=== PATIENT | male | born 1960 | race Caucasian/White ===

== ENCOUNTER 2017-07-31 17:00 | Inpatient (IN) | payer MEDICARE, OTHER ==
[2017-07-31 17:45] VITALS: BP 120/75
[2017-07-31] MEDS ORDERED: Magnesium Hydroxide (MOM) 30 mL UDC PO PRN (19:55)
[2017-07-31] MEDS ORDERED: Maalox 30 mL Cup PO PRN (19:55)
[2017-08-01] MEDS: Multivitamin Tab PO SCH (09:18)
--- NOTE | 2017-08-01 21:39 | Psychiatric Evaluation ---
DATE OF SERVICE: JUSTIFICATION FOR HOSPITALIZATION: Brought in on a 5150 hold due to stabbing himself with a knife. CHIEF COMPLAINT: "I was very upset, I was drunk." HISTORY OF PRESENT ILLNESS: A 57-year-old male denies any current history of mental illness; however, he was very upset, upset that a friend of his no longer was talking to him, began to cut his wrists with a fork, stabbing himself in the wrists with a fork. The patient does not believe he is depressed, but apparently has been on antidepressants in the past, was also drinking alcohol alluding to 2 cans of beer per day, but that day he was drinking 6 beers because he was so upset about his loss of friendship. The patient notes his mood has been worsening for the past 2 weeks, attesting to poor sleep, poor appetite, psychological distress, turmoil, very focused and ruminative about his loss of a friendship over the past 2 weeks. The patient noted cocaine use back in the . He is drinking about 1-2 beers per day. No other drugs of abuse. MEDICATIONS: Noted. MEDICAL HISTORY: Please see full H and P. MENTAL STATUS EXAMINATION: Stated age. Fair eye contact. Speech within normal limits. Mood depressed. Affect withdrawn. Thought processes were linear. The patient is status post self-harming efforts, stabbing himself with a knife or a fork. No HI. No current psychotic symptoms. Insight and judgment questionable. Impulse control is poor. PROVISIONAL DIAGNOSES: Major depression, recurrent, severe; also anxiety, unspecified; rule out generalized anxiety disorder. Under medical, please see full H and P. ESTIMATED LENGTH OF STAY: 7-10 days. FUNCTIONAL IMPAIRMENTS: None noted. ASSESSMENT: The patient requiring hospitalization, stabbing himself with a knife or a fork in the wrists. PLAN: We will continue to monitor. Monitor for any signs and symptoms of alcohol withdrawal. TREATMENT PLAN: Includes group as well as milieu therapy. CONDITIONS FOR DISCHARGE: Improved mood, improved affect, cessation of any SI or HI, better mood. [facility]# [id number]
[2017-08-02] MEDS: Multivitamin Tab PO SCH (09:12)
--- NOTE | 2017-08-02 23:47 | History & Physical ---
ADMIT DATE: 08/02/2017 REASON FOR ADMISSION: Mental disorders. HISTORY OF PRESENT ILLNESS: A 57-year-old male who was admitted to [facility] Unit for underlying psychiatric illnesses by Dr. Fierro. Dr. Fierro requested medical H and P on this patient. While evaluating the patient, the patient has self-inflicted bilateral forearm wounds. The patient denies any pain. No active bleeding, no bilateral hand forearm numbness. No fever, no chills. He has a dressing on for this wound. PAST MEDICAL HISTORY: No significant past medical history reported. PAST SURGICAL HISTORY: No significant past surgical history reported. SOCIAL HISTORY: Lives at home. Denies any alcohol, tobacco, or street drug use. CURRENT MEDICATIONS: The patient is on Lexapro, folic acid, Ativan, Maalox, Tylenol, milk of magnesia, multivitamins, vitamin B1, and Ambien. REVIEW OF SYSTEMS: As per HPI, 12-point system review appears negative. PHYSICAL EXAMINATION: VITAL SIGNS: Temperature 96.8, pulse 63, respiration is 20, blood pressure 123/76, oxygen saturation is 98% on room air. Pain 0/10. GENERAL APPEARANCE: The patient does not seem in acute distress. HEENT: Unremarkable. HEART: S1, S2 normal. LUNGS: Clear to auscultation bilaterally. ABDOMEN: Soft, nontender. No guarding, no rigidity. NEUROLOGIC: The patient is alert, awake, follows commands, moves all extremities. SKIN: Bilateral forearm wound noted. No active bleeding noted. Wound appears clean. AVAILABLE LABORATORY DATA: No lab tests available for my review. ASSESSMENT: 1. Bilateral forearm superficial wound. 2. Insomnia. 3. Psychiatric disorder. PLAN: The patient admitted to [facility]. The patient will be given daily wound care. The patient given Ambien as needed for sleep. The patient will be continued on multivitamins. Stool softener as needed for constipation. Psych evaluation and management per psychiatrist. The patient's condition and plan of care discussed with nursing staff. Thank you Dr. iFerro for allowing us to participate in care of this patient. JOB# [id number]
--- NOTE | 2017-08-03 02:27 | Progress Notes ---
DATE: 08/02/2017 SUBJECTIVE: The patient in the hospital, brought on hold, was trying to stop his wrist with a fork. He actually did stop his wrist with a fork. The patient remains depressed, withdrawn, still somewhat isolative. He notes his family did come to visit yesterday, so he was pleased about that. Still appearing depressed, isolative, highly impulsive, unpredictable. Medications were noted. He notes he has been on antidepressants in the past. Currently on Lexapro. The patient is sleeping well, eating well. ASSESSMENT: The patient remains symptomatic, tried to kill himself, stabbed self in the wrist with a fork. We will continue to monitor, ongoing safety concerns. We will initiate a 14-day hold. JOB# [id number]
[2017-08-03] MEDS: Triple Antibiotic 0.94 gm Pkt TP SCH (08:27)
[2017-08-03] MEDS: Multivitamin Tab PO SCH (08:27)
--- NOTE | 2017-08-03 22:33 | Progress Notes ---
DATE: 08/03/2017 Case was discussed with staff of the patient, reviewed records. Covering for Dr. Fierro. This is a 57-year-old male who was admitted on 07/31/2017. The patient was upset because a friend of his no longer was talking to him, began to cut his wrists with a fork, stabbing himself and there are bryson from both wrists. His sister was visiting him. The patient has been depressed. The patient has been on antidepressant in the past, also was drinking alcohol alluding to 2 cans of beer every day. He was upset and he drank 6 beers because of loss of his friendship, has been worsening mood for the past 2 weeks, ruminating about a lot of his friends. The patient was seen and evaluated by Dr. Alvarado and the patient has been started on Lexapro 10 mg a day, multivitamin and thiamin and Ativan to be given as needed for alcohol withdrawal. He continues to be unpredictable and impulsive. He continues to be depressed. No side effects with the medication, no sedation, no nausea, no extrapyramidal symptoms. I will continue outpatient group therapy, milieu therapy and adjust the medication as needed. JOB# [id number]
[2017-08-04] MEDS: Triple Antibiotic 0.94 gm Pkt TP SCH (08:16)
[2017-08-04] MEDS: Multivitamin Tab PO SCH (08:18)
--- NOTE | 2017-08-04 20:29 | Progress Notes ---
DATE: 08/04/2017 SUBJECTIVE: Case was discussed with staff of patient. The staff reported that the patient has been more lucid. He continues to be depressed. Continues to be unpredictable, impulsive, and stabbing himself on both arms. He continues to have poor insight. He is sleeping better, eating better. No side effects with the medication, no sedation, no nausea and we will continue outpatient group therapy, milieu therapy, and adjust medications as needed. JOB# [id number]
[2017-08-05] MEDS: Triple Antibiotic 0.94 gm Pkt TP SCH (08:48)
[2017-08-05] MEDS: Multivitamin Tab PO SCH (08:49)
[2017-08-06] MEDS: Multivitamin Tab PO SCH (09:25)
[2017-08-06] MEDS: Triple Antibiotic 0.94 gm Pkt TP SCH (09:25)
--- NOTE | 2017-08-06 21:26 | Progress Notes ---
DATE: 08/05/2017 SUBJECTIVE: Chart reviewed and the patient interviewed. Also, discussed the patient's condition with the staff and reviewed records and labs. The patient is complaining of insomnia. The patient also is feeling hopeless and is still in a depressed mood. The patient also said that his depression has been worse during manager integrated. Also, continues to have intermittent thoughts of suicide, with a plan to cut his wrists. Otherwise, the patient said that he is "not feeling got hurt". The patient said that he has a close couple that he has been friend with them for a while, but all of a sudden they decided not to talk to him because the thought that the patient wants to have a relationship with his . The patient denies any of that and he said that they are close friends to him. At the same time, the patient is compliant with taking Lexapro at a dose of 10 mg every day with no side effects. TREATMENT PLAN: We will continue same dose, and continue to monitor his behavior and his condition closely. JOB# [id number]
[2017-08-07] MEDS: Multivitamin Tab PO SCH (09:25)
[2017-08-07] MEDS: Triple Antibiotic 0.94 gm Pkt TP SCH (09:25)
--- NOTE | 2017-08-07 18:43 | Progress Notes ---
DATE: 08/06/2017 SUBJECTIVE: Chart reviewed and the patient interviewed. Also discussed the patient's condition with the staff and reviewed records and labs. The patient is still angry and patient is "upset with my mother." The patient also is still forgetful and is still suspicious and paranoid and he thinks that someone came into his room and hit him. The patient also is complaining of difficulty sleep at night and he said that Ambien helps him for a sleep at night. The patient on the other hand is compliant with taking Lexapro with no side effect. ASSESSMENT: The patient is still confused and is still irritable. TREATMENT PLAN: Continue to monitor his behavior and his condition closely. Also, working on his ineffective coping and his agitation and irritability. JOB# [id number]
--- NOTE | 2017-08-07 20:37 | Progress Notes ---
DATE: 08/07/2017 SUBJECTIVE: Chart reviewed and the patient interviewed. Also discussed the patient's condition with the staff and reviewed records and labs. The patient is still in a depressed mood. The patient also is still anxious and is guarded. The patient also is still minimizing his level of depression and his thoughts of suicide was planned to cut himself. He also is withdrawn and interacting minimally with others. Also, still has episodes of paranoia and delusions and still at times thinks that people entering his room and hitting him. Otherwise, the patient is compliant with taking his medications and seems to be less paranoid and less fearful. ASSESSMENT: The patient is still depressed and is still a high risk dangerous to self. TREATMENT PLAN: We will continue monitoring his behavior and his condition closely. Also, we will continue working on his ineffective coping. Also, the patient continued to take Lexapro in a dose of 10 mg every day and will continue to follow up closely. JOB# [id number]
[2017-08-08] MEDS: Triple Antibiotic 0.94 gm Pkt TP SCH (09:41)
[2017-08-08] MEDS: Multivitamin Tab PO SCH (09:41)
--- NOTE | 2017-08-09 02:16 | Progress Notes ---
DATE: 08/08/2017 Chart reviewed and the patient interviewed. Also, discussed the patient's condition with the staff and reviewed records and labs. The patient also is guarded and has been paranoid. The patient also is forgetful. The patient also is still abusing others who try to come into his room, and having very difficulty with privacy. Otherwise, the patient is cooperative and is compliant with taking his medications with no side effects of medications. ASSESSMENT: The patient is still agitated and is still ____. TREATMENT PLAN: We will monitor his behavior and his condition closely. Also, continue to work on his poor impulse control and agitation and ____. JOB# [id number]
[2017-08-09] MEDS: Triple Antibiotic 0.94 gm Pkt TP SCH (08:59)
[2017-08-09] MEDS: Multivitamin Tab PO SCH (08:59)
--- NOTE | 2017-08-09 23:57 | Progress Notes ---
DATE: 08/09/2017 SUBJECTIVE: Chart reviewed and the patient interviewed. Also discussed the patient's condition with the staff and reviewed records and labs. The patient is still in a depressed mood. The patient also is still isolative and he is still interacting minimally with others. The patient also is cooperative with his treatment and compliant with taking his medications, but he wants to be left alone. He denies any intention to harm himself or others. ASSESSMENT: The patient is still depressed. TREATMENT PLAN: Continue to monitor his behavior and his condition closely. Also, continue adjusting psychotropic medications and followup. [facility]# [id number]
[2017-08-10] MEDS: Triple Antibiotic 0.94 gm Pkt TP SCH (09:27)
[2017-08-10] MEDS: Multivitamin Tab PO SCH (09:28)
--- NOTE | 2017-08-11 07:46 | Progress Notes ---
DATE: 08/10/2017 PSYCHIATRIC PROGRESS NOTE SUBJECTIVE: Chart reviewed and the patient interviewed. Also discussed the patient's condition with the staff and reviewed records and labs. The patient remains in a depressed mood. The patient also is still guarded and is still withdrawn. The patient also is still complaining of trouble sleeping at night sometimes although he said that he is in general sleeping better than before. He also denies any intention to kill himself and denies any craving to drink. ASSESSMENT: The patient is still depressed. TREATMENT PLAN: Continue to monitor his behavior and his condition closely. Also, continue Lexapro same dose. Also discussed with the patient discharge plans and if he will return to home or will need placement. [facility]# [id number]
[2017-08-11] MEDS: Multivitamin Tab PO SCH (08:44)
--- NOTE | 2017-08-11 12:19 | General Progress Note ---
Subjective - Review of Systems Service Date: 08/11/17 Subjective: Patient seen and examined feels better denied any complaints Objective - Physical Exam Vitals and I&O: Vital Signs Temp 97.8 F 08/11/17 06:51 Pulse 77 08/11/17 06:51 Resp 20 08/11/17 06:51 BP 134/74 08/11/17 06:51 Pulse Ox 97 08/11/17 06:51 Intake & Output 08/10/17 08/11/17 08/11/17 18:59 06:59 18:59 Intake Total 1200 360 Balance 1200 360 Intake: Oral 1200 360 Other: # Voids 4 2 # Bowel Movements 1 1 Active Medications: Current Medications Acetaminophen (Tylenol) 650 mg PO Q4HR PRN PRN Reason: Mild Pain / Temp above 100 Stop: 09/29/17 19:54 Al Hydrox/Mg Hydrox/Simethicone (Maalox) 30 ml PO Q4HR PRN PRN Reason: GI DISTRESS Stop: 09/29/17 19:54 Escitalopram Oxalate (Lexapro) 10 mg PO DAILY QUINN; Protocol Stop: 09/30/17 08:59 Last Admin: 08/11/17 08:44 Dose: 10 mg Folic Acid (Folate) 1 mg PO DAILY QUINN Stop: 09/30/17 08:59 Last Admin: 08/11/17 08:44 Dose: 1 mg Lorazepam (Ativan) 0.5 mg PO TID PRN; Protocol PRN Reason: Anxiety Stop: 10/07/17 20:02 Magnesium Hydroxide (Milk Of Magnesia) 30 ml PO HS PRN PRN Reason: Constipation Multivitamins/Vitamin C (Theragran) 1 tab PO DAILY QUINN Stop: 09/30/17 08:59 Last Admin: 08/11/17 08:44 Dose: 1 tab Thiamine HCl (Vitamin B1) 100 mg PO DAILY QUINN Stop: 09/30/17 08:59 Last Admin: 08/11/17 08:44 Dose: 100 mg Zolpidem Tartrate (Ambien) 5 mg PO HS PRN PRN Reason: Insomnia Stop: 10/07/17 20:07 Last Admin: 08/09/17 21:15 Dose: 5 mg General: Alert Cardiovascular: Regular rate Lungs: Clear to auscultation Assessment/Plan - Assessment Assessment: Bilateral arm superficial wound better Insomnia stable Psych disorder stable - Plan Plan: Continue current treatment Psych follow up Nutritional Asmnt/Malnutr-PDOC - Dietary Evaluation Malnutrition Findings (Please click <Entered> for more info): Nutritional Asmnt/Malnutrition Start: 08/06/17 15: 18 Text: Status: Complete Freq: Protocol: Document 08/06/17 15:18 LCHENG (Rec: 08/06/17 15:26 [email or web address] [id number]) Nutritional Asmnt/Malnutrition Patient General Information Nutritional Screening Low Risk Diagnosis mayor depression Pertinent Medical Hx/Surgical Hx no significant past medical hx reported Subjective Information Per EMR, PO intake 100% of meals. Current Diet Order/ Nutrition Support regular Pertinent Medications folate, theragran, B1 Pertinent Labs no labs Nutritional Hx/Data Height 1.78 m Height (Calculated Centimeters) 177.8 Current Weight (lbs) 74.843 kg Weight (Calculated Kilograms) 74.8 Weight (Calculated Grams) 47010.7 [place] Body Weight 166 Body Mass Index (BMI) 23.6 Weight Status Approriate GI Symptoms GI Symptoms None Last BM 08/05 Difficult in: None Skin Integrity/Comment: puncture wound Current %PO Good (75-100%) Estimated Nutritional Goals BEE in Kcals: Using Current wt Calories/Kcals/Kg 25-30 Kcals Calculated 6587-7835 Protein: Using Current wt Protein g/k.8-1 Protein Calculated 60-75 Fluid: ml 1875-2250ml (1ml/kcal) Nutritional Problem No current Nutrition Prob Problem N/A Malnutrition Alert Is there a minimum of two criteria No selected? Query Text:Check all the applicable criteria. A minimum of two criteria are recommended for diagnosis of either severe or non-severe malnutrition. Malnutrition Related to Morbid Obesity Malnutrition related to morbid obesity No Intervention/Recommendation Comments 1. Continue with regular diet as ordered. 2. Monitor PO intake, wt, labs and skin integrity 3. F/U as low risk in 7 days, 08/13 Expected Outcomes/Goals Expected Outcomes/Goals 1. PO intake to meet at least 75% of nutritional needs. 2. Wt stability, skin to remain intact, labs to approach WNL.
--- NOTE | 2017-08-11 18:02 | Progress Notes ---
DATE: SUBJECTIVE: Chart reviewed and the patient interviewed. Also discussed the patient's condition with the staff and reviewed records and labs. The patient is still in a depressed mood, but his affect is brighter. The patient is interacting slightly more. The patient also is compliant with taking his medications with no side effects of medications. The patient also is restless at times and anxious, but at the same time, he is showing no behavioral issues. ASSESSMENT: The patient is showing improvement and seems to be less depressed. TREATMENT PLAN: We will continue monitoring his behavior. Also, working on discharge plans and aftercare plans with nurse case manager. JOB# [id number]
[2017-08-12] MEDS: Multivitamin Tab PO SCH (09:55)
--- NOTE | 2017-08-12 14:59 | Discharge Summary ---
DATE OF DISCHARGE: 08/12/2017 AGE: 57. SEX: Male. PHYSICIAN: Ad Fierro M.D., M.P.H. FINAL DIAGNOSIS/PRIMARY DIAGNOSIS: Major depression, severe, recurrent, without psychotic features. REASON FOR HOSPITALIZATION: The patient was admitted to the hospital because of increased depression and suicidal ideations. HOSPITAL COURSE: The patient continued to be severely depressed. The patient was withdrawn. The patient also denies any craving to drink or choose any drugs. The patient was started on Lexapro and the dose adjusted to 10 mg every day. The patient's affect was brighter. The patient was less depressed. The patient was not suicidal or homicidal, and he was discharged from the hospital. Physical examination of the patient was basically within normal. Blood workup was also basically within normal. AFTER DISCHARGE PLANS: The patient discharged from the hospital with plans to continue his treatment as an outpatient. The patient also given appointment to see me in my office in [place]. Also, he is a candidate for partial program and we will do so upon further evaluation. JOB# [id number]
== END 2017-08-12 13:45 | disposition home or self-care (01) | DRG 885 ==
LOC: GERO 17:00
PROVIDERS: ADMIT Psychiatry & Neurology Psychiatry; ATTEND Psychiatry & Neurology Psychiatry
DX: F33.9 Major depressive disorder, recurrent, unspecified (principal); F41.9 Anxiety disorder, unspecified; G47.00 Insomnia, unspecified; R45.87 Impulsiveness; T14.91XA Suicide attempt, initial encounter; S61.512A Laceration without foreign body of left wrist, initial encounter; S50.912A Unspecified superficial injury of left forearm, initial encounter; F29 Unspecified psychosis not due to a substance or known physiological condition; S50.911A Unspecified superficial injury of right forearm, initial encounter; F10.20 Alcohol dependence, uncomplicated; S61.511A Laceration without foreign body of right wrist, initial encounter; X78.8XXA Intentional self-harm by other sharp object, initial encounter; Y93.89 Activity, other specified; Y92.89 Other specified places as the place of occurrence of the external cause; Y99.8 Other external cause status
CPT/HCPCS: 90899; G0410

== ENCOUNTER 2017-08-19 17:30 | Inpatient (IN) | payer MEDICARE, OTHER ==
[2017-08-19 18:57] VITALS: BP 151/76
[2017-08-19] MEDS ORDERED: Magnesium Hydroxide (MOM) 30 mL UDC PO PRN (20:42)
[2017-08-19] MEDS ORDERED: Maalox 30 mL Cup PO PRN (20:42)
[2017-08-20 09:46] LABS: % BASOPHILS 0.3 % (0.0-2.0); % EOSINOPHILS 1.9 % (0.0-5.0); % LYMPHOCYTES 19.7 % (20.0-50.0); % MONOCYTES 6.1 % (2.0-10.0); EOSINOPHILE ABSOLUTE 0.1 Th/cmm (0.1-0.4); HEMATOCRIT 42.9 % (41.0-60); HEMOGLOBIN 14.3 gm/dL (12-16); LYMPHOCYTE ABSOLUTE 1.3 Th/cmm (1.5-3.0); MEAN CELL VOLUME 94.9 fl (80-99); MEAN CORPUSCULAR HEMOGLOBIN 31.5 pg (26.0-30.0); MEAN CORPUSCULAR HGB CONC 33.2 pg (28.0-36.0); MEAN PLATELET VOLUME 8.3 fl; MONOCYTE ABSOLUTE 0.4 Th/cmm (0.3-1.0); NEUTROPHILE ABSOLUTE 4.9 Th/cmm (1.8-8.0); PLATELET COUNT 223 Th/cmm (150-400); RED BLOOD COUNT 4.52 Mil/cmm (4.30-5.70); RED CELL DISTRIBUTION WIDTH 11.9 % (11.5-20.0); WHITE BLOOD COUNT 6.7 Th/cmm (4.8-10.8)
[2017-08-20 09:57] LABS: ANION GAP 9.9 (7.0-16.0); BUN - UREA NITROGEN 8 mg/dL (7-25); CALCIUM SERUM 9.5 mg/dL (8.6-10.3); CARBON DIOXIDE 27.4 mEq/L (21.0-31.0); CHLORIDE 104 mEq/L (98-107); CHOLESTEROL 124 mg/dL (<200); CREATININE - SERUM 0.6 mg/dL (0.7-1.3); GFR AFRICAN-AMERICAN > 60.0 ml/min (>90); GFR NON AFRICAN-AMERICAN > 60.0 ml/min; GLUCOSE 139 mg/dL (70-105); HDL -HIGH DENSITY LIPOPROTEIN 46 mg/dL (23-92); POTASSIUM SERUM 3.3 mEq/L (3.5-5.1); SODIUM SERUM 138 mEq/L (136-145); TRIGLYCERIDES 46 mg/dL (<150)
[2017-08-20] MEDS: Multivitamin Tab PO SCH (10:17)
[2017-08-20 21:53] LABS: A1C % 4.7 % (4.0-6.0)
--- NOTE | 2017-08-21 02:11 | History & Physical ---
ADMIT DATE: 08/19/2017 REASON FOR ADMISSION: Psychiatric disorder. HISTORY OF PRESENT ILLNESS: A 57-year-old male admitted to [facility] Unit for underlying psychiatric illnesses by Dr. Fierro who requested medical H and P on this patient. Patient has bilateral forearm superficial wounds. The patient denies any pain. No active bleeding. SOCIAL HISTORY: No alcohol or tobacco use. CURRENT MEDICATIONS: Per medication reconciliation. ALLERGIES: No known allergies. REVIEW OF SYSTEMS: The patient denies any fever. No chills, no nausea, no vomiting, no abdominal pain, no bloody stool. PHYSICAL EXAMINATION: VITAL SIGNS: Temperature 97, pulse 80, respirations 18, BP 130/80 HEART: S1 and S2 normal. ASSESSMENT: 1. Bilateral forearm superficial wound. 2. Mental disorder. PLAN: The patient will be begin daily wound care dressing. Fall precautions. Psych evaluation per psychiatrist. Monitor vitals. The patient medically stable . Thank you Dr. Fierro. JOB# [id number] [facility]
--- NOTE | 2017-08-21 02:20 | Psychosocial Evaluation ---
DATE OF SERVICE: 08/20/2017 AGE: 57. SEX: Male. PHYSICIAN: Dr. Fierro. CHIEF COMPLAINT: Depression and suicidal ideations. HISTORY OF PRESENT ILLNESS: The patient is a 57-year-old male with history of severe depression and self-mutilation. The patient was transferred from [facility] after he tried to stab himself with a fork in a suicidal attempt. The patient said that he has been feeling depressed and has been feeling upset. He has been feeling hopeless and helpless and has been having lack of energy and lack of motivations. The patient also had been withdrawn and interacting minimally with others. The patient also admitted that he has been drinking. PAST PSYCHIATRIC HISTORY: The patient has history of multiple psychiatric hospitalizations for treatment of depression and drinking. PAST MEDICAL HISTORY: No major medical problems. SOCIAL HISTORY: The patient is single, never , has no children. He is unemployed and on disability. Denies legal issues and denies abuse issues. ALLERGIES: No known allergies. MENTAL STATUS EXAMINATION: The patient appears his stated age. Sad affect. Depressed mood. Thought processes is mainly goal directed. The patient denies hallucinations or delusions but admits to suicidal ideations, and denies homicidal ideations. The patient is alert and oriented to time, place, person, and situation. Intact immediate, recent and remote memories. Poor insight and poor judgment. ASSESSMENT: PRIMARY DIAGNOSIS: Major depression, severe, recurrent, without psychotic features. SECONDARY DIAGNOSIS: Alcohol use disorder. TREATMENT PLAN: Continue monitoring his behavior and his condition closely. We will restart the patient on Lexapro and we will adjust the dose. We will work on his also alcoholism and his drinking problems. ESTIMATED LENGTH OF STAY: 5-7 days. THE PATIENT'S STRENGTHS AND WEAKNESSES: The patient seems to be in relatively fair health. Weaknesses: His ineffective coping and his heavy drinking. AFTER DISCHARGE PLAN: Outpatient treatment and followup. We will continue as an outpatient and the patient will return to his placement. JOB# [id number]
[2017-08-21] MEDS: Multivitamin Tab PO SCH (08:30)
[2017-08-22] MEDS: Multivitamin Tab PO SCH (08:57)
--- NOTE | 2017-08-22 19:09 | Progress Notes ---
DATE: 08/22/2017 Case was discussed with staff of the patient and reviewed records. Covering for Dr. Fierro. This 57-year-old male, who is admitted on 08/19/2017 with history of severe depression, self-mutilation, transferred to [facility] after he tried to stab himself with a fork in a suicide attempt. The patient said that he has been feeling depressed and has been feeling upset, feeling hopeless and helpless and has been having lack of energy and lack of motivation and so far has been withdrawn, interacting minimally with others. He reports that he has been drinking, with a history of multiple psychotic hospitalizations for treatment of depression and drinking. He is on disability, single, never , unemployed, no children. The patient was seen by Dr. Fierro, who has been seeing for the last few days. He is on Lexapro 10 mg a day, folic acid 1 mg daily, Haldol 10 mg 3 times a day, multivitamin daily, thiamine 100 mg daily and he was given Ativan 2 mg every 4 hours as needed for detoxing. He continues to be depressed, overwhelmed. He continues to have thoughts of planning to harm himself, has to be medicated today according to the staff. No side effects with the medication, no sedation, no nausea. I will continue the patient in group therapy, milieu therapy, adjust medications as needed. JOB# [id number]
--- NOTE | 2017-08-22 22:09 | Progress Notes ---
DATE: 08/22/2017 PSYCHIATRIC PROGRESS NOTE: Chart reviewed and the patient interviewed. Also discussed the patient's condition with the staff and reviewed records and labs. The patient is still in a depressed mood and is still feeling hopeless and helpless. The patient also is still having thoughts of suicide with plan to stab himself, which he did try to stab himself prior to his admission. He is still feeling hopeless and helpless and he is still withdrawn. Minimum interaction with others. On the other hand, the patient started to take Lexapro with no side effects. ASSESSMENT: The patient is still depressed and is still high risk for suicide. TREATMENT PLAN: Continue to monitor behavior and condition closely. Also, continue to work on his ineffective coping and adjusting psychotropic medications. JOB# [id number]
[2017-08-23] MEDS: Multivitamin Tab PO SCH (08:47)
--- NOTE | 2017-08-23 20:41 | Progress Notes ---
DATE: 08/23/[address] Fierro. Case was discussed with staff of the patient, reviewed records. Treatment plans and goals also reviewed with medication list. The patient continues to be unpredictable, impulsive, self-destructive, tried to harm himself while on the unit. He is currently a little bit calmer; however, he is unpredictable, impulsive. Continues to be depressed, was drinking prior to coming here. He has been compliant with the medication with no side effects, no sedation, no nausea, no extrapyramidal symptoms. We will continue to work with the patient in group therapy, milieu therapy, and adjust the medications as needed. JOB# [id number]
--- NOTE | 2017-08-23 21:44 | Progress Notes ---
DATE: 08/23/[address] Fierro. SUBJECTIVE: Case discussed with staff of the patient, reviewed records. The patient continues to be unpredictable, impulsive, needing redirection. Continues to have poor insight. He was apparently acting very agitated, self-destructive behavior, trying to harm himself while in the unit. DICTATION ENDS HERE JOB# [id number]
--- NOTE | 2017-08-24 06:52 | Progress Notes ---
DATE: SUBJECTIVE: Chart reviewed and the patient interviewed. Also discussed the patient's condition with the staff and reviewed records and labs. The patient is guarded and is still in a depressed mood. The patient also is having episodes of agitation and hallucinations. The patient thinks that someone is after him and wants to kill him. On the other hand, the patient is compliant with taking his medications. He pulled the fire alarm and the escaped during the weekend, but now he is calmer. There is compliant with taking medications with no side effects of medications. ASSESSMENT: The patient is still depressed and seems to be psychotic, but his psychosis is subsiding. TREATMENT PLAN: Continue monitoring his behavior and his condition closely. Also, continue to work on his ineffective coping and follow up. Also, working on his drinking problem. JOB# [id number]
[2017-08-24] MEDS: Multivitamin Tab PO SCH (08:36)
--- NOTE | 2017-08-25 06:55 | Progress Notes ---
DATE: SUBJECTIVE: Chart reviewed and the patient interviewed. Also discussed the patient's condition with the staff and reviewed records and labs. The patient remains in a depressed mood. The patient also is still isolative and withdrawn. He is minimizing his drinking issues. The patient also is still feeling hopeless and helpless and talking about desire to end his life. Otherwise, the patient is compliant with taking his medications with no side effects of medications. ASSESSMENT: The patient is still severely depressed and needs close monitoring. [facility]# [id number]
[2017-08-25] MEDS: Multivitamin Tab PO SCH (08:57)
[2017-08-26] MEDS: Multivitamin Tab PO SCH (08:08)
--- NOTE | 2017-08-27 01:49 | Progress Notes ---
DATE: SUBJECTIVE: Chart reviewed and the patient interviewed. Also discussed the patient's condition with the staff and reviewed records and labs. The patient is still severely depressed and withdrawn. The patient also is still interacting minimally with peers and with others. The patient also is still withdrawn and is avoiding conversation. Also, minimizing his drinking problems. Otherwise, the patient is compliant with taking his medications with no side effects of medications. ASSESSMENT: The patient is still depressed and high risk relapse and high risk of suicide. TREATMENT PLAN: Continue to monitor his behavior and his condition closely. Also, continue to work on his addiction to alcohol. Also, we will increase Lexapro to 15 mg every day and continue to follow up closely. [facility]# [id number]
[2017-08-27] MEDS: Multivitamin Tab PO SCH (09:26)
--- NOTE | 2017-08-27 16:42 | Progress Notes ---
DATE: 08/27/2017 SUBJECTIVE: Chart reviewed and the patient interviewed. Also discussed the patient's condition with the staff and reviewed records and labs. The patient is still guarded and withdrawn. The patient also is still in a depressed mood and stays by himself most of the time. The patient denies thoughts of suicide, but he is still guarded and high risk suicide. Otherwise, the patient is compliant with taking his medications with no side effects of medications. ASSESSMENT: The patient is still depressed. TREATMENT PLAN: Continue Lexapro 15 mg every day. Also, continue to work on his drinking problem. Also, continue to follow up closely. JOB# [id number]
[2017-08-28] MEDS: Multivitamin Tab PO SCH (08:47)
[2017-08-29] MEDS: Multivitamin Tab PO SCH (08:23)
--- NOTE | 2017-08-29 20:44 | Progress Notes ---
DATE: 08/28/2017 SUBJECTIVE: Chart reviewed and the patient interviewed. Also, discussed the patient's condition with the staff and reviewed records and labs. The patient continued to be in a depressed mood. The patient also is severely depressed and withdrawn. The patient also still has cravings to drink. He also is still feeling hopeless and helpless and have intermittent thoughts of suicide but denies any actual plan to suicide. He also still has lack of energy and lack of motivations. Otherwise, the patient is compliant with taking medications with no side effects of medications except the patient is complaining of feeling tired and sedated. ASSESSMENT: The patient is still depressed and high risk for suicide. TREATMENT PLAN: Continue to monitor his behavior and his condition closely. Also, continue to work on his hopeless feelings as well as his drinking and we will continue to follow up. Also, we will change Ativan to be given on a p.r.n. basis. JOB# [id number]
--- NOTE | 2017-08-29 22:49 | Progress Notes ---
DATE: 08/29/2017 This 57-year-old male with history of depression, self-mutilating behaviors. I have seen this patient in the past. He tends to cut himself with a fork withdrawn, highly impulsive, unpredictable, gets very mad, hurts himself. The patient is still depressed, withdrawn, still remains highly impulsive, unpredictable. He shows me where he hurt himself on his arms. Dr. Fierro is seeing the patient over the past few days, noting depression, most of the time isolative, any thoughts of harm seems to be dissipating and decreasing. He states he is sleeping fairly well, eating well. He would like to go home soon. ASSESSMENT: The patient remains symptomatic, ongoing symptoms of melancholy, depression, isolation. Medications were noted. PLAN: We will continue to monitor given his ongoing symptoms. He still remains an acute safety risk. [facility]# [id number]
--- NOTE | 2017-08-30 06:44 | Progress Notes ---
DATE: 08/30/2017 SUBJECTIVE: The patient in the hospital, self-mutilating behaviors, hurt himself with a fork, highly impulsive and unpredictable. This is not the first time this has happened. The patient remains somewhat depressed, withdrawn, mostly in his bed, noting he is feeling "better" but he is mostly withdrawn, remains impulsive, highly unpredictable, tolerant to treatment, but states he is feeling somewhat more hopeful and optimistic. He is eating well, sleeping well. Medications were noted including dosages and frequencies. He is currently on Lexapro. ASSESSMENT: The patient remains symptomatic, still withdrawn, mostly depressed, but noting any thoughts of self-mutilating to hurt himself or dissipating. He is trying to work on his coping. PLAN: We will continue to monitor, adjust and titrate medications. Given the severity of his presentation and his ongoing depressive symptoms, there are ongoing safety concerns. JOB# [id number]
[2017-08-30] MEDS: Multivitamin Tab PO SCH (08:34)
[2017-08-31] MEDS: Multivitamin Tab PO SCH (09:32)
--- NOTE | 2017-08-31 21:47 | Progress Notes ---
DATE: 08/31/[address] Fierro. Case was discussed with staff of the patient, reviewed records. This is a well-known patient seen for covering Dr. Fierro. Apparently, he was readmitted. He has been self-mutilating. Apparently, he has tried to harm himself with a fork, he is highly impulsive, unpredictable, continues to have poor insight, depressed, withdrawn mostly. He is reported that he is starting to feel a little bit better. He is eating better, sleeping better. He has been compliant with the medication with no side effects, no sedation, no nausea. He is on Lexapro 15 mg a day. I will be increasing the dose to 20 mg a day and he is also on thiamine. He is on Haldol 2 mg 3 times a day and so far no side effects of the medication, no sedation, no nausea, no extrapyramidal symptoms. I will continue to work with the patient in group therapy, milieu therapy, and adjust the medication as needed. JOB# [id number]
[2017-09-01] MEDS: Multivitamin Tab PO SCH (08:25)
--- NOTE | 2017-09-01 22:21 | Progress Notes ---
DATE: 09/01/2017 SUBJECTIVE: Case was discussed with staff of the patient, reviewed records. The patient ____ today and it was upheld on the first 14 days on the ground of danger to self and grave disability. The patient continues to have poor insight. He is unpredictable, impulsive, was self-mutilating behavior, sleeping better, eating better. He is compliant with the medication with no side effects, no sedation, no nausea, no extrapyramidal symptoms. I did increase his Lexapro dose yesterday and he is on Haldol 2 mg 3 times a day with no side effect, so we will continue the patient in group therapy, milieu therapy, and adjust the medications as needed. [facility]# [id number]
[2017-09-02] MEDS: Multivitamin Tab PO SCH (08:15)
[2017-09-03] MEDS: Multivitamin Tab PO SCH (08:14)
--- NOTE | 2017-09-03 15:55 | Progress Notes ---
DATE: 09/02/2017 PSYCHIATRIC PROGRESS NOTE Chart reviewed and the patient interviewed. Also discussed the patient's condition with the staff and reviewed records and labs. The patient is still depressed and is still withdrawn. The patient also still suspicious and feels slightly paranoid. Otherwise, the patient is cooperative with his treatment and compliant with taking his medications. Also, continue to work on his drinking problem. The patient denies any side effects of Lexapro. Also, he denies any intention to harm himself. ASSESSMENT: The patient is still depressed and high risk suicide. TREATMENT PLAN: Continue to monitor his behavior and his condition closely. Also, continue to work on his ineffective coping and his drinking. Also planning to discharge the patient tomorrow if he continues to improve. JOB# [id number]
--- NOTE | 2017-09-03 23:01 | Discharge Summary ---
DATE OF DISCHARGE: 09/03/2017 THE PATIENT'S AGE: 57. SEX: Male. PHYSICIAN: Dr. Fierro. FINAL DIAGNOSIS/PRIMARY DIAGNOSIS: Major depression, severe, recurrent, without psychotic features. SECONDARY DIAGNOSIS: Alcohol use disorder. REASON FOR HOSPITALIZATION: The patient was admitted to the hospital because of increased depression and suicidal attempts by stabbing himself with a fork in his neck. The patient was placed on a hold and transferred to the hospital. HOSPITAL COURSE: The patient continued to be severely depressed. The patient also was feeling hopeless and helpless. The patient also continued to be severely depressed. The patient restarted on Lexapro and the dose was increased to 15 mg every day. Gradually, the patient's affect was brighter. The patient was less depressed and less agitated. He also interacted more appropriately. The patient was discharged from the hospital back home. Physical exam of the patient as mentioned showed no major medical problems while in the hospital. AFTER DISCHARGE PLAN: The patient discharged from the hospital with plans to continue working on his depression as an outpatient and the patient given appointment to see me on Thursday, 09/09 at 11:00 and appointment card given to the patient. Also to continue to work on his drinking and also go to AA meetings. EXPECTED OUTCOME AFTER DISCHARGE: Fair if the patient continued to take his medications and follow up with discharge plans. JOB# [id number]
--- NOTE | 2017-09-05 02:36 | Discharge Summary ---
DATE OF DISCHARGE: 09/03/2017 FINAL DIAGNOSIS/PRIMARY DIAGNOSIS: Major depression, severe, recurrent, without psychotic features. SECONDARY DIAGNOSIS: Alcohol use disorder. REASON FOR HOSPITALIZATION: The patient was admitted to the hospital because of extreme depression and suicidal ideations and the patient tried to stab himself with a fork in his neck in suicide attempt. HOSPITAL COURSE: The patient continued to be severely depressed and anxious. He was also feeling hopeless and helpless. Also, was interacting minimally with others. The patient was started on Lexapro. Gradually, the patient's affect was brighter. The patient was less depressed and less agitated. He denies any thoughts of suicide or homicide and he was motivated to stay sober and patient was discharged from the hospital. Physical exam of the patient showed no major medical problems. Labs also was within normal. AFTER DISCHARGE PLAN: The patient was discharged from hospital with plans for outpatient treatment and follow up, continue as an outpatient. EXPECTED OUTCOME AFTER DISCHARGE: The patient is still at high risk for relapse and the patient continues his outpatient program ____ continue his psychotropic medications. [facility]# [id number]
== END 2017-09-03 13:00 | disposition home or self-care (01) | DRG 885 ==
LOC: GERO 17:30
PROVIDERS: ADMIT Psychiatry & Neurology Psychiatry; ATTEND Psychiatry & Neurology Psychiatry
DX: F33.2 Major depressive disorder, recurrent severe without psychotic features (principal); F10.20 Alcohol dependence, uncomplicated; F99 Mental disorder, not otherwise specified; S51.802A Unspecified open wound of left forearm, initial encounter; S51.801A Unspecified open wound of right forearm, initial encounter
CPT/HCPCS: 36415-UA; 80048-TC; 80061-TC; 83036-90; 84443-TC; 85025-TC; 90899; G0410

== ENCOUNTER 2018-02-27 15:01 | Inpatient (IN) | payer MEDICARE, OTHER ==
[2018-02-27 15:29] VITALS: BP 121/78
[2018-02-27] MEDS ORDERED: Magnesium Hydroxide (MOM) 30 mL UDC PO PRN (15:44)
[2018-02-27] MEDS ORDERED: Maalox 30 mL Cup PO PRN (15:44)
[2018-02-28 07:06] LABS: CHOLESTEROL 117 mg/dL (<200); HDL -HIGH DENSITY LIPOPROTEIN 32 mg/dL (23-92); TRIGLYCERIDES 59 mg/dL (<150)
[2018-02-28] MEDS: Multivitamin Tab PO SCH (09:25)
--- NOTE | 2018-02-28 22:13 | History & Physical ---
ADMIT DATE: 02/27/2018 REASON FOR CONSULTATION: Medical management. HISTORY OF PRESENT ILLNESS: This 58-year-old male was admitted to Geropsych Unit for underlying psychiatric illness by Dr. Alvarado. Dr. Alvarado requested medical H and P on this patient. The patient denies any medical complains or concerns. PAST MEDICAL HISTORY: Denies. PAST SURGICAL/FAMILY HISTORY: Denies. SOCIAL HISTORY: Denies any alcohol, tobacco, or street drug use. CURRENT MEDICATIONS: Per medication list. ALLERGIES: No known drug allergies. REVIEW OF SYSTEMS: All 12-point system appears negative. PHYSICAL EXAMINATION: VITAL SIGNS: Temperature 98.7, pulse 80, respirations 18, blood pressure 121/80, 100% on room air. Pain 0/10. HEENT: Unremarkable Hear : Normal Lung : Clear bilaterally Abd : Soft non tender EXTREMITIES: No recent fall. Moves all extremities. No focal deficits. ASSESSMENT: Mental health disorders. PLAN: The patient will be continued on current treatment and medication list reviewed. Lab ordered. . The patient is medically stable. Thank you, Dr. Alvarado, for allowing me to participate in the care of this patient. JOB# [id number] MTDD
[2018-03-01 06:40] LABS: % BASOPHILS 0.7 % (0.0-2.0); % LYMPHOCYTES 33.5 % (20.0-50.0); % MONOCYTES 9.2 % (2.0-10.0); % NEUTROPHILS 48.6 % (40.0-80.0); EOSINOPHILE ABSOLUTE 0.4 Th/cmm (0.1-0.4); HEMATOCRIT 39.8 % (41.0-60); HEMOGLOBIN 13.5 gm/dL (12-16); LYMPHOCYTE ABSOLUTE 1.5 Th/cmm (1.5-3.0); MEAN CELL VOLUME 92.9 fl (80-99); MEAN CORPUSCULAR HEMOGLOBIN 31.6 pg (26.0-30.0); MEAN CORPUSCULAR HGB CONC 34.1 pg (28.0-36.0); MEAN PLATELET VOLUME 8.3 fl; MONOCYTE ABSOLUTE 0.4 Th/cmm (0.3-1.0); NEUTROPHILE ABSOLUTE 2.3 Th/cmm (1.8-8.0); PLATELET COUNT 171 Th/cmm (150-400); RED BLOOD COUNT 4.28 Mil/cmm (4.30-5.70); RED CELL DISTRIBUTION WIDTH 11.8 % (11.5-20.0); WHITE BLOOD COUNT 4.6 Th/cmm (4.8-10.8)
[2018-03-01 07:06] LABS: BUN - UREA NITROGEN 13 mg/dL (7-25); CALCIUM SERUM 9.2 mg/dL (8.6-10.3); CARBON DIOXIDE 26.7 mEq/L (21.0-31.0); CHLORIDE 104 mEq/L (98-107); CREATININE - SERUM 0.6 mg/dL (0.7-1.3); GFR AFRICAN-AMERICAN > 60.0 ml/min (>90); GFR NON AFRICAN-AMERICAN > 60.0 ml/min; GLUCOSE 90 mg/dL (70-105); POTASSIUM SERUM 3.7 mEq/L (3.5-5.1); SODIUM SERUM 139 mEq/L (136-145)
[2018-03-01] MEDS: Multivitamin Tab PO SCH (08:39)
--- NOTE | 2018-03-01 11:07 | Psychiatric Evaluation ---
DATE OF SERVICE: 02/28/2018 COVERING FOR: Dr. Alvarado CHIEF COMPLAINT: Attempted to overdose. HISTORY OF PRESENT ILLNESS: The patient is a 58-year-old male with history of alcohol dependence and history of depression. He reports he was feeling overwhelmed and he recently attempted to overdose, but then starts minimizing the usage of his medication, reported just took a couple more pills. He also reports that he has been taking medication for his depression, which he finds to be helpful in regards to his mood including Lexapro and BuSpar. PAST MEDICAL HISTORY: None. LEGAL HISTORY: None. PAST PSYCHIATRIC HISTORY: History of depression, alcohol dependence. CURRENT MEDICATIONS: Lexapro 10 mg a day, folic acid, lorazepam as needed to monitor for any withdrawal symptoms, multivitamins, thiamine and Ambien as needed. SOCIAL HISTORY: Unemployed. Living in [facility]. LABORATORY AND DIAGNOSTIC DATA: Labs read from the other hospital unremarkable CBC. CMP within normal limits. U-tox negative. FAMILY HISTORY: Denied. ALLERGY TO MEDICATIONS: NKDA. MENTAL STATUS EXAMINATION: He is calm, cooperative, depressed, congruent, suicidal. No delusions, no auditory or visual hallucinations. Awake and alert x 3. Limited to poor insight, judgment and impulse control. Immediate memory not impaired. Remote memory not impaired. ASSESSMENT: The patient is a 58-year-old male with a history of major depressive disorder and alcohol dependence. We will continue monitoring for any withdrawal symptoms, although he reported he was drinking between 2-4 beers a day, on the day of the attempt he took 7 and although recognized the lorazepam and Ambien at this point may trigger the patient's addictions, we will continue with the current medications, continue monitoring for any withdrawal symptoms and then titrate him off those medications once the patient is further stabilized. History of alcohol and drug use, drinking alcohol every day about 2-4 beers according to the patient. PRIMARY DIAGNOSIS: Major depressive disorder. SECONDARY DIAGNOSIS: Alcohol dependence, alcohol withdrawal. MEDICAL DIAGNOSIS: None. PLAN: 1. Admit the patient. 2. Continue with the Lexapro and BuSpar. 3. Monitor the patient for any withdrawal symptoms. 4. Estimated length of stay between 5-10 days. DISCHARGE CRITERIA: Demonstrate euthymic mood. No suicidal or homicidal. Good psychiatric followup. Good [id number] interaction. JOB# [id number]
--- NOTE | 2018-03-01 23:16 | Progress Notes ---
DATE: 03/01/2018 SUBJECTIVE: The patient in the hospital, attempted overdose. States it was accidental, got a history of suicide efforts in the past, cutting in the past. History of depression, mood fluctuations, anxiety. Negative thoughts, intrusive thoughts. The patient is still depressed, withdrawn, also had been drinking 12-pack of alcohol for about 6 days. No overt tremors noted. Vitals reviewed. Pulse rate 81. Most recent blood pressure 106/61, to err on the side of caution, we have him on Ativan p.r.n. ASSESSMENT: The patient is depressed, withdrawn, status post an overdose effort, safety concerns. PLAN: We will continue to monitor and initiate a 14-day hold. The patient remains at high risk for self-harm. JOB# [id number]
[2018-03-02] MEDS: Multivitamin Tab PO SCH (08:27)
--- NOTE | 2018-03-03 03:48 | Progress Notes ---
DATE: 03/02/2018 The patient was feeling overwhelmed, attempted to hurt himself, seems to be doing better, calmer, more cooperative, states he is sleeping well, eating fairly well, socializing well and no aggressive behaviors. The patient is very impulsive, unpredictable, well oriented, residing at home with family. Mom came to see patient today. ASSESSMENT: The patient is calm, cooperative, status post suicide effort. PLAN: We will continue to monitor. We will continue Lexapro. JOB# [id number]
[2018-03-03] MEDS: Multivitamin Tab PO SCH (08:54)
--- NOTE | 2018-03-03 15:34 | Progress Notes ---
DATE: 03/03/2018 SUBJECTIVE: The patient is currently in the hospital, still feeling overwhelmed, depression, melancholy, anxious, isolative, very impulsive, highly unpredictable hospitalizations in the past, history of self-harm in the past. Fair sleep, fair appetite. MEDICATIONS: Reviewed. ASSESSMENT: The patient is anxious, has ongoing depression, and concerns for suicidality. PLAN: We will continue to monitor and I will be adjusting his dosages of medications. We will adjust BuSpar for example. JOB# [id number]
[2018-03-04] MEDS: Multivitamin Tab PO SCH (09:07)
--- NOTE | 2018-03-04 14:45 | Progress Notes ---
DATE: 03/04/2018 SUBJECTIVE: The patient in the hospital, noted to be depressed, withdrawn, suicidal. The patient seems to be showing some signs of improvement. Fair sleep, fair appetite socializing well, getting along well with staff and peers, very impulsive, unpredictable hospitalizations in the past, cutting behaviors in the past, status post an overdose of her ongoing concerns about his impulsivity, concerns, he may act out upon his impulses and harm self, given his history and current presentation of ongoing mood swings, depression, melancholy. ASSESSMENT: The patient is depressed, withdrawn, ongoing melancholic symptoms, concerns for suicidality. I will be increasing his dose of Lexapro today. JOB# [id number]
[2018-03-05] MEDS: Multivitamin Tab PO SCH (09:04)
--- NOTE | 2018-03-06 01:56 | Progress Notes ---
DATE: 03/05/2018 SUBJECTIVE: The patient noted to be depressed, stating he feels "irritable," upset, not bernabe for safety. Ongoing concerns about impulsivity, recent dose increase of Lexapro, also on BuSpar for sleep or appetite. The patient with history of self-harm. Mom involved. Eating fairly well, but mostly withdrawn and quiet today. ASSESSMENT: The patient is depressed, withdrawn, isolative, still melancholic, irritable, angry. We will continue to monitor. PLAN: We will continue dose increase of Lexapro. JOB# [id number]
[2018-03-06] MEDS: Multivitamin Tab PO SCH (09:10)
--- NOTE | 2018-03-07 01:11 | Progress Notes ---
DATE: 03/06/2018 SUMMARY: I am covering for Dr. Alvarado. Case was discussed with staff of the patient and reviewed records. This is a 58-year-old male, who was admitted on 02/28/2017 with a history of alcohol dependence, history of depression, who attempted to overdose. The patient is being overwhelmed and he minimizes events and usage of his medication. He said he took just a couple of more pills. He also reports that he has been taking medication for his depression, which he finds to be helpful in regard to his mood including Lexapro and BuSpar. The patient, when I talked to him today, was somewhat irritable, agitated, and yelling that the staff is not treating him well. He is on buspirone 5 mg twice a day, Lexapro 15 mg that was increased yesterday with no side effects. He continues to be depressed, minimizes events that led to admission. No side effects to the medication, no sedation, no nausea. We will continue to work with the patient in group therapy, milieu therapy, and adjust the medication as needed. JOB# [id number]
[2018-03-07] MEDS: Multivitamin Tab PO SCH (08:55)
--- NOTE | 2018-03-07 21:20 | Progress Notes ---
DATE: 03/07/2018 SUBJECTIVE: Case was discussed with staff of the patient. The patient continues to isolate himself, staying in his room, get easily agitated, continues to have poor insight, continues to be depressed. He is minimizing any current intent to harm himself or anybody. He has tolerated the increase on Lexapro 50 mg a day. Also, he is on BuSpar 5 mg twice a day. We will continue to work with the patient in group therapy, milieu therapy, and adjust the medications as needed. JOB# [id number]
[2018-03-08] MEDS: Multivitamin Tab PO SCH (08:57)
[2018-03-09] MEDS: Multivitamin Tab PO SCH (09:32)
--- NOTE | 2018-03-09 11:16 | Progress Notes ---
DATE: SUBJECTIVE: The patient is currently in the hospital, still noted to be agitated, upset, feeling on edge, really angry, easily triggered, upset with staff, upset with other patients, mostly withdrawn, keeps to himself, isolative, still with intrusive thoughts, negative thoughts, ongoing concerns about suicidal thoughts, suicidality, given the extent and severity of his current severe symptoms. ASSESSMENT: The patient remains symptomatic, still on edge, still depressed, withdrawn and isolative. PLAN: I will be adjusting his medications. We will add Seroquel to his regimen. We will continue to monitor, treat on inpatient basis. JOB# [id number]
--- NOTE | 2018-03-10 05:46 | Progress Notes ---
DATE: 03/09/2018 The patient is currently in the hospital, fairly oriented, still irritable, upset, believing that another patient was trying to harm him, "I yelled at this patient." The patient is still irritable, still lashing out at other, is currently on dosing of Seroquel at nighttime, seems to be somewhat calmer versus previous. He likely will need a mood stabilizer for what appears to be a mixed depression. Sleeping better. Eating fairly well. Better ADLs. ASSESSMENT: The patient is depressed, upset, highly impulsive, unpredictable, ongoing safety concerns given how angry he is. PLAN: We will continue to monitor, titrate and adjust medications, increase Seroquel dosing today. [facility]# [id number]
[2018-03-10] MEDS: Multivitamin Tab PO SCH (09:12)
--- NOTE | 2018-03-10 20:36 | Progress Notes ---
DATE: 03/10/2018 SUBJECTIVE: The patient is currently in the hospital, seems to be calmer. Seroquel helping. Mood more stable, less anxious, less on edge. No yelling or screaming episodes. The patient does seem to be using alcohol at home. This is a likely culprit of his decompensation. He states that at times he drinks pretty heavily, educated on the detriments of alcohol use. The patient is sleeping well, eating well, somewhat more engaged and interactive, any thoughts of self-harm dissipating, decreasing. ASSESSMENT: The patient linear, more engaged, seems to be improving, likely approaching his baseline. I will be titrating dosing of Seroquel. Staff noting improvement. JOB# [id number]
[2018-03-11] MEDS: Multivitamin Tab PO SCH (08:06)
--- NOTE | 2018-03-11 18:59 | Discharge Summary ---
DATE OF DISCHARGE: 03/11/2018 JUSTIFICATION FOR HOSPITALIZATION: The patient overdosed on medications in a suicide efforts. HISTORY OF PRESENT ILLNESS: A 58-year-old male known to this clinician history of major depressive disorder. Apparently, stating that he wanted to . I took medications in an overdose in a suicide effort. The patient with history of suicide attempts, depressed for "a long time", also history of alcohol use. Mood decompensation, hopeless thoughts. The patient is hopeless, helpless, and despairing. PAST PSYCHIATRIC HISTORY: Admissions in the past. SOCIAL HISTORY: Living at home with family. The patient does use alcohol. PAST MEDICAL HISTORY: Please see full H and P. MENTAL STATUS EXAMINATION: Please see full psych eval for details. PROVISIONAL DIAGNOSES: Major depression, recurrent, severe; also anxiety, unspecified; alcohol use disorder, severe. Under medical, please see full H and P. HOSPITAL COURSE: After initial assessment, the patient restarted on medications, Lexapro, BuSpar, Seroquel. Over the course of the hospitalization, mood improved, affect improved, more sociable, more engaged, no longer is irritable, more hopeful, more optimistic, normalization of sleep, appetite toward the latter end of treatment. He was asymptomatic, no longer depressed, more optimistic, anxiety improved. No SI. CONDITION UPON DISCHARGE: Improved, better attention ADLs, better eye contact. Mood "better." Affect broad. Thought processes were linear. No SI, no HI. No psychosis. Better insight and judgment. DISCHARGE DIAGNOSES: Major depression, recurrent, severe; psychosis; anxiety, unspecified; alcohol use disorder, unspecified. PROGNOSIS: The patient follows up with outpatient mental health services and remains compliant with treatment. Prognosis will improve, otherwise guarded. [facility]# [id number]
== END 2018-03-11 13:00 | disposition home or self-care (01) | DRG 885 ==
LOC: GERO 15:01
PROVIDERS: ADMIT Psychiatry & Neurology Psychiatry; ATTEND Psychiatry & Neurology Psychiatry
DX: F33.3 Major depressive disorder, recurrent, severe with psychotic symptoms (principal); F10.239 Alcohol dependence with withdrawal, unspecified; F41.9 Anxiety disorder, unspecified
CPT/HCPCS: 36415-UA; 80048-TC; 80061-TC; 85025-TC; 90899; G0410; Z7610